=== PATIENT | female | born 2000 | race Caucasian/White ===

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

== ENCOUNTER 2022-05-19 10:06 | Emergency (ER) | payer BC ==
--- OUTSIDE RECORDS SUMMARY | 2022-05-19 10:15 | XMS REPORT | Continuity of Care Document ---
:2000 Author Organization [facility] t Address [address] [place] [address] Care Team Providers Name Role Phone Shield Attending Clinician Unavailable EUFEMIA MUÑIZ Attending Clinician Unavailable KAMINI Attending Clinician Unavailable Hope_David Attending Clinician Unavailable A_Byrd Attending Clinician Unavailable TAO DAILY Attending Clinician Unavailable JUAN SWIFT Attending Clinician Unavailable KIARRA OH Attending Clinician Unavailable AGATA MONTESINOS Attending Clinician Unavailable IRAIDA JUNIOR Attending Clinician Unavailable Mary Kay Admitting Clinician Unavailable KELLY_JAMIE Admitting Clinician Unavailable Hope_David Admitting Clinician Unavailable A_Byrd Admitting Clinician Unavailable Payers Payer Name Policy Type Policy Number Effective Date Expiration Date S [place] [id number] 2019 00:00:00 [place] Problems Condition Condition Condition Status Onset Resolution Last Treating Co mments Source Name Details Category Date Date Treatment Clinician Date 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-16 da major Major 00:00: [facility] depression Depression 00 al [facility] Premenstru Premenstru Problem Active Bryant griffith tension al 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 bedtime. bedtime. Depo-Sap Basis Depo-Sap Basis No Depo-Prove [place] a a ra da [...] mg da tablet tablet tablet Medical Group amoxicillin amoxicillin No 1 Q12H amoxicilli [facility] 875 mg 875 mg n 875 mg da tablet Take tablet Take tablet Medical 1 tablet 1 tablet Take 1 Group every 12 every 12 tablet hours by hours by every 12 oral route oral route hours by for 10 for 10 oral route days. days. for 10 days. hydroxyzine hydroxyzine No hydroxyzin [facility] HCl 25 mg HCl 25 mg e HCl 25 d a tablet TAKE tablet TAKE mg tablet Medical 1 TABLET BY 1 TABLET BY TAKE 1 Group MOUTH ONCE MOUTH ONCE TABLET BY DAILY DAILY MOUTH ONCE NEEDED NEEDED DAILY NEEDED Immunizations Ordered Immunization Filled Immunization Date Status Commen ts Source Name Name influenza, influenza, 2019-03-24 Completed [facility] injectable, injectable, 00:00:00 Medical Grou p quadrivalent quadrivalent influenza, influenza, 2019-03-24 Completed [facility] injectable, injectable, 00:00:00 Medical Grou p quadrivalent quadrivalent Vital Signs Vital Name Observation Time Observation Value Comments Source Height 2022-03-16 00:00:00 63.2 [facility]in_i] [facility] BMI (Body Mass 2022-03-16 00:00:00 20.6 kg/m2 [facility] Index) Group BP Systolic 2022-03-16 00:00:00 98 mm[Hg] [facility] Body Weight 2022-03-16 00:00:00 1872 [oz_av] [facility] BP Diastolic 2022-03-16 00:00:00 63 mm[Hg] [facility] Height 2021-01-06 00:00:00 63 [in_i] [facility] BMI (Body Mass 2021-01-06 00:00:00 20.6 kg/m2 [facility] Index) [facility] Out[facility] BP Systolic 2021-01-06 00:00:00 91 mm[Hg] [facility] Body Weight 2021-01-06 00:00:00 116.4 [lb_av] [facility] BP Diastolic 2021-01-06 00:00:00 59 mm[Hg] [facility] BP Diastolic 2019-12-01 00:00:00 70 mm[Hg] [facility] BP Systolic 2019-12-01 00:00:00 105 mm[Hg] [facility] Body Weight 2019-12-01 00:00:00 104 [lb_av] [facility] BP Diastolic 2019-07-17 00:00:00 59 mm[Hg] [facility] Height 2019-07-17 00:00:00 63.5 [in_i] [facility] BMI (Body Mass 2019-07-17 00:00:00 16.6 kg/m2 [facility]) Group BP Systolic 2019-07-17 00:00:00 87 mm[Hg] [facility] Body Weight 2019-07-17 00:00:00 1520 [oz_av] [facility] BP Diastolic 2019-01-18 00:00:00 66 mm[Hg] [facility] Height 2019-01-18 00:00:00 63 [in_i] [facility] BMI (Body Mass 2019-01-18 00:00:00 17.7 kg/m2 [facility] Index) Group BP Systolic 2019-01-18 00:00:00 95 mm[Hg] [facility] Body Weight 2019-01-18 00:00:00 1601 [oz_av] [facility] BP Diastolic 2018-10-06 00:00:00 84 mm[Hg] [facility] Height 2018-10-06 00:00:00 63 [in_i] [facility] BMI (Body Mass 2018-10-06 00:00:00 18.3 kg/m2 [facility] Medical Index) Group BP Systolic 2018-10-06 00:00:00 94 mm[Hg] [facility] Body Weight 2018-10-06 00:00:00 1649 [oz_av] [facility] BP Diastolic 2018-09-26 00:00:00 55 mm[Hg] [facility] Height 2018-09-26 00:00:00 63 [in_i] [facility] BMI (Body Mass 2018-09-26 00:00:00 18.1 kg/m2 [facility] Medical Index) Group BP Systolic 2018-09-26 00:00:00 96 mm[Hg] [facility] Body Weight 2018-09-26 00:00:00 102 [lb_av] [facility] BP Diastolic 2018-06-20 00:00:00 63 mm[Hg] [facility] Height 2018-06-20 00:00:00 62.6 [in_i] [facility] BMI (Body Mass 2018-06-20 00:00:00 18.4 kg/m2 [facility] Medical Index) Group BP Systolic 2018-06-20 00:00:00 94 mm[Hg] [facility] Body Weight 2018-06-20 00:00:00 1641 [oz_av] [facility] Procedures Procedure Date / Time Performing Clinician Source Performed US, pelvis 2019-12-01 00:00:00 Sheila Me dical Group US, transvaginal 2019-01-18 00:00:00 Sheila Hurtado edical Group US, pelvis 2018-09-26 00:00:00 Sheila Bullard dical Group Extraction of [place] 2018-05-24 00:00:00 Halyie valladares Medical Tooth Group ENT Surgery [facility] l Group Plan of Care Planned Activity Planned Date Details Comments Source Diagnostic Test 2022-03-16 rapid influenza [facility] Pending 00:00:00 virus A + B and SARS Group CoV + SARS CoV 2 Ag panel, IA, upper respiratory specimen [code = rapid influenza virus A + B and SARS CoV + SARS CoV 2 Ag panel, [place], upper respiratory specimen] Diagnostic Test 2022-03-16 rapid strep group A, [facility] Pending 00:00:00 throat [code = rapid Group strep group A, throat] Diagnostic Test 2022-03-16 TSH, serum or plasma [facility] Pending 00:00:00 [code = TSH, serum Group or plasma] Diagnostic Test 2022-03-16 CBC w/ auto diff [facility] Pending 00:00:00 [code = CBC w/ auto Group diff] Diagnostic Test 2022-03-16 CMP, serum or plasma [facility] Pending 00:00:00 [code = CMP, serum Group or plasma] Diagnostic Test 2021-01-06 CMP, serum or plasma [facility] Pending 00:00:00 [code = CMP, serum [facility] or plasma] Outreach Progra m Diagnostic Test 2021-01-06 lipid panel, serum [facility] Pending 00:00:00 [code = lipid panel, [facility] serum] Outreach Progra m Instructions [facility] Progra m Instructions [facility] Encounters Start End Encounter Admission Attending Care Care Encounter Source Date/Time Date/Time Type Type Clinicians Facility Department ID 2022 2022 Outpatient Shield MMG MMG [id number] [facility] 00:00:00 00:00:00 1107 [facility] 2022-03-16 2022-03-16 Outpatient MARY KAY [facility] [id number] [place] 11:03:00 11:03:00 EUFEMIA -[id number] blaine [facility] 2022-03-16 2022-03-16 Outpatient Shield MMG MMG [id number] [place] 00:00:00 00:00:00 1024 [facility] 2022-03-16 2022-03-16 Eufemia [place] - [id number] M [facility] 00:00:00 00:00:00 Discovery blaine Muñiz CHEMIST INORGANIC: [address] [facility] [place] [address], [facility] [place] [address] , Ph. 2022-03-11 2022-03-11 Outpatient Shield MMG MMG [id number] [place] 00:00:00 00:00:00 1019 da [facility] Group 2021-01-28 2021-01-28 Outpatient DESAI_KARLEY [facility]ON [facility] [id number] [place] 08:01:00 08:01:00 H 0907 da [facility] 2021-01-06 2021-01-06 Jamie DESAI_KARLEY [facility] [place] - [id number] [facility] 00:00:00 00:00:00 Jayantilal H [facility] 0816 beni Frost MD: [facility] Epi scop 1700 [facility] [address] Chel lipscomb , Ph. [phone] 2020-05-23 Outpatient G_Pappas MMG MMG 2019 [place] 01:04:00 01:04:00 1231 [facility] 2020-04-18 2020-04-18 Outpatient G_Pappas MMG MMG 2019 [place] 01:04:00 01:04:00 1126 [facility] 2020-04-10 2020-04-10 Outpatient G_Pappas MMG MMG - 2019 [place] 02:40:00 02:40:00 1118 [facility] 2020-03-14 2020-03-14 Outpatient G_Pappas MMG MMG 2019 [place] 01:05:00 01:05:00 1022 [facility] Group 2019-12-03 2019-12-03 Outpatient G_Pappas MMG MMG - 2019 [place] 09:30:00 09:30:00 0712 [facility] Group 2019-12-01 2019-12-01 Johann G_Pappas MMG [place] - [id number] [place] 00:00:00 00:00:00 Discovery David 0710 blaine CHAVEZ: [address] [place] [address] Group [facility] [address], [place] [address] , Ph. [phone] 2019-11-29 2019-11-29 Outpatient A_Byrd MMG MMG [id number] [place] 02:38:00 02:38:00 0708 [facility] 2019-07-23 2019-07-23 Outpatient A_Byrd YUN [facility] [id number] [place] 03:25:00 03:25:00 0301 da Medical Group 2019-07-17 2019-07-17 Eufemia [place] - [id number] [facility] 00:00:00 00:00:00 Discovery Mary Kay 0224 da CHEMIST INORGANIC: [address] [facility] [address] [address], [facility] [address] , Ph. 2019-07-05 2019-07-05 Outpatient MAYO DAILY, [facility] [id number] [place] 09:45:00 09:45:00 TAO -[id number] [facility] 2019-01-18 2019-01-18 Outpatient MAYO MUÑIZ, [facility] [id number] [place] 08:51:00 08:51:00 EUFEMIA -[id number] [facility] 2019-01-18 2019-01-18 [place] - [id number] [facility] 00:00:00 00:00:00 Discovery Mary Kay 0828 da CHEMIST INORGANIC: [address] [place] [address], [place] [address], [facility] [place] [address] , Ph. 2018-10-06 2018-10-06 Eufemia [facility] [place] - [id number] [facility] 00:00:00 00:00:00 Discovery Mary Kay 0516 da CHEMIST INORGANIC: [address] [place], [place] [address]rda - [address], [facility] [place] [address] , Ph. 2018-09-26 2018-09-26 Bernice Barger [facility] [place] - [id number] [place] 00:00:00 00:00:00 Discovery Michael 0506 da WHNP: [address] [place] [address], [place] [address], [place] [address] , Ph. [phone] 2018-08-12 2018-08-12 Outpatient JON SWIFT, [facility] [id number] [place] 08:51:00 08:51:00 JUAN -[id number] [facility] 2018-06-20 2018-06-20 [place] - [id number] [facility] 00:00:00 00:00:00 Discovery Mary Kay 0128 da CHEMIST INORGANIC: [address] [facility] [place], [place] [address], [facility] [place] [address] , Ph. 2016-06-11 2016-06-11 Outpatient JON OH [facility] [id number] [place] 14:56:00 14:56:00 KIARRA -[id number] [facility] 2016-06-09 2016-06-09 Outpatient MAYO OH [facility] [id number] [place] 14:57:00 14:57:00 KIARRA -[id number] [facility] 2014-07-10 2014-07-10 Emergency ER BA, AGATA [facility] [id number] [place] 17:27:00 20:41:00 -[id number] [facility] 2009-07-30 2009-07-30 Outpatient MAYO JUNIOR [facility] [id number] [place] 06:31:00 06:31:00 IRAIDA -[id number] [facility] 2004-12-26 2004-12-26 Outpatient MAYO [place] [facility] [id number] [place] 08:46:00 08:46:00 KIARRA -[id number] [facility] Results Test Description Test Time Test Comments Results Result Comments Source quest collection 2019-07-05 09:13:00 Test Item Value Reference Range Interpretation Comme nts quest collection (test code = quest collection) [facility] W Auto Differential panel - [id number] 07:02:00 Test Item Value Reference Range Interpretation Comments white blood count (test code = 6.5 K/uL 4.0-11.5 white blood count) red blood count (test code = red 4.28 M/uL 3.80-5.20 blood count) hemoglobin (test code = 13.9 g/dL 12-16 hemoglobin) hematocrit (test code = 40.2 % 34.0-50.0 hematocrit) Erythrocyte mean corpuscular 93.9 fL 78-102 volume [Entitic volume] (test code = 39685-7) mean corpuscular hemoglobin (test 32.5 pg 26.2-33.4 [...] 44.4-80.1 leukocytes in Blood (test code = 36187-9) Ig% (test code = Ig%) 0.3 % 0.0-11.0 lymphocyte% (test code = 26.8 % 10.0-50.0 lymphocyte%) mono % (test code = mono %) 7.7 % 3.0-6.0 H eos % (test code = eos %) 1.4 % 0.0-3.0 Basophils/100 leukocytes in 0.3 % 0.0-1.0 Unspecified specimen (test code = 92454-9) absolute neutrophil count (test 4.10 K/uL 1.5-9.5 code = absolute neutrophil count) Ig# (test code = Ig#) 0.0 K/uL 0.0-0.03 Lymphocytes [#/volume] in 1.7 K/uL 1.1-6.0 Unspecified specimen by Automated count (test code = 53784-6) mono # (test code = mono #) 0.50 K/uL 0.24-0.86 eos # (test code = eos #) 0.09 K/uL 0.04-0.36 basophil # (test code = basophil 0.02 K/uL 0.01-0.08 #) NRBC% (test code = NRBC%) 0 /100 WBC 0-0.2 NRBC# (test code = NRBC#) 0 K[facility] [id number] 07:02:00 NeutrophilsBandLymphocyteAtypical LymphMonocyteEosinophilPlatelet EstimatePlatelet MorphologyHypochromasiaDifferential comment-[facility] metabolic 2000 panel - Serum or [id number] 07:02:00 Test Item Value Reference Range Interpretation [...] = calcium 10.3 mg/dL 8.4-10.2 H level) [facility]
[2022-05-19 11:09] LABS: Urine Blood Trace-intact (Negative); Urine Glucose Negative (Negative); Urine Protein 1+ (Negative); Urine Specific Gravity >=1.030 (1.005-1.030)
[2022-05-19] MEDS ORDERED: Ringers Lactate 1,000 ML IV ONE ×2 (11:17→14:54)
[2022-05-19] MEDS ORDERED: ONDANSETRON 4 MG/2 ML VIAL ONE ×2 (11:17→12:51)
[2022-05-19 11:21] LABS: Absolute Lymphocytes (CBC) 1.7 K/uL (0.7-4.9); Hematocrit 41.4 % (36.0-45.0); Lymphocytes % 25.4 % (15.3-44.8); MCV 93.1 fL (80-100); MPV 7.1 fL (7.6-11.3); RBC Red Blood Cell Count 4.44 M/uL (3.86-4.86)
[2022-05-19 11:30] LABS: Urine Specific Gravity/Preg >1.030 (1.005-1.030)
[2022-05-19 11:44] LABS: SARS-COV-2 RT PCR NEGATIVE (NEGATIVE)
[2022-05-19 12:25] LABS: Albumin 4.7 g/dL (3.4-5.0); Bilirubin Total 1.3 mg/dL (0.2-1.0); Potassium 3.4 mmol/L (3.5-5.1); Protein, Total 7.9 g/dL (6.4-8.2)
--- NOTE | 2022-05-19 13:16 | RAD REPORT ---
EXAM DESCRIPTION: CTAbdomen Pelvis W Contrast - 05/19/2022 12:59 pm CLINICAL HISTORY: lower abdominal pain, vomiting COMPARISON: No comparisons TECHNIQUE: CT of the abdomen and pelvis was performed with IV contrast. All CT scans are performed using dose optimization technique as appropriate and may include automated exposure control or mA/KV adjustment according to patient size. FINDINGS: Lower chest: No acute abnormality. Liver: No acute abnormality or suspicious lesions. Biliary: No biliary ductal dilatation. Stomach: No significant focal abnormality. Duodenum: No significant focal abnormality. Pancreas: No significant abnormality. Spleen: No significant abnormality. Adrenal: No suspicious lesions. Kidney/ureter: No hydronephrosis. No renal calculi. Retroperitoneum: No retroperitoneal adenopathy. Vascular: No aneurysm. Bowel: Normal appendix.. Peritoneum: No ascites or free air. Bladder: Grossly unremarkable. Reproductive: Ovaries appear enlarged bilaterally with bilateral ovarian lesions. The largest in the right ovary measures 2.7 cm. Bones: No acute fracture. Other: n/a IMPRESSION: No acute intra-abdominal or pelvic finding. Ovaries are enlarged bilaterally which is pr esumably physiologic. If adnexal pathology is suspected, pelvic ultrasound could further evaluate. No rmal appendix.
[2022-05-19] MEDS ORDERED: ACETAMINOPHEN 325 MG TABLET ONE (13:52)
[2022-05-19] MEDS ORDERED: LORazepam 2 MG/ML VIAL ONE (14:11)
[2022-05-19] MEDS ORDERED: DIPHENHYDRAMINE 50 MG/ML VIAL ONE (14:53)
[2022-05-19] MEDS ORDERED: METOCLOPRAMIDE 10 MG/2mL INJ ONE (14:53)
--- NOTE | 2022-05-19 16:53 | ER ---
[facility] Name: Keri [facility] Age: 22 yrs Sex: Female : 2000 Arrival Date: 05/19/2022 Time: 10:09 Bed 11 Private MD: Diagnosis: Vomiting Presentation: 05/19 10:31 Chief complaint: Patient states: N/V with body aches since Wednesday. No fever. ll1 Coronavirus screen: Vaccine status: Patient reports receiving the 2nd dose of the covid vaccine. Client denies travel out of the [place] in the last 14 days. fatigue, nausea, vomiting. Client presents with at least one sign or symptom that may indicate coronavirus-19. Standard/surgical mask placed on the client. Ebola Screen: Patient denies travel to an Ebola-affected area in the 21 days before illness onset. Initial Sepsis Screen: Does the patient meet any 2 criteria? No. Patient's initial sepsis screen is negative. Does the patient have a suspected source of infection? Yes: Other: N/V. Risk Assessment: Do you want to hurt yourself or someone else? Patient reports no desire to harm self or others. Onset of symptoms was May 17, 2022. 10:31 Method Of Arrival: Ambulatory ll1 10:31 Acuity: MARIA FERNANDA 4 ll1 Triage Assessment: 10:33 General: Appears in no apparent distress. Behavior is calm, cooperative, appropriate ll1 for age. GI: Reports nausea, vomiting. Musculoskeletal: Reports pain in body aches. Historical: - Allergies: 10:31 No Known Allergies; ll1 - PMHx: 10:31 None; ll1 - PSHx: 10:31 None; ll1 - Immunization history:: Client reports receiving the 2nd dose of the Covid vaccine. - Social history:: Smoking status: Patient denies any tobacco usage or history of. Screenin:33 Abuse screen: Denies threats or abuse. Nutritional screening: No deficits noted. ll1 Tuberculosis screening: No symptoms or risk factors identified. 10:50 [facility] ED Fall Risk Assessment (Adult) History of falling in the last 3 months, ss including since admission No falls in past 3 months (0 pts) Confusion or Disorientation No (0 pts) Intoxicated or Sedated No (0 pts) Impaired Gait No (0 pts) Mobility Assist Device Used No (0 pt) Altered Elimination No (0 pt) Score/Fall Risk Level 0 - 2 = Low Risk. Assessment: 10:50 General: Appears ill, slender, Behavior is calm, cooperative. Pain: Complains of pain ss in generalized body aches. Neuro: Level of Consciousness is awake, alert, obeys commands, Oriented to person, place, time, situation, Photographic Aide are. Cardiovascular: Capillary refill < 3 seconds is brisk in bilateral fingers. Respiratory: Airway is patent Respiratory effort is even, unlabored, Respiratory pattern is regular, symmetrical. GI: Reports nausea, vomiting, since x 2-3 days. : Denies burning with urination, urinary frequency. Derm: Skin is pink, warm \T\ dry. normal. Musculoskeletal: Circulation, motion, and sensation intact. Range of motion: intact in all extremities, Swelling absent. 11:59 Reassessment: Patient appears in no apparent distress at this time. Patient states ss feeling better. Patient states symptoms have improved. 12:40 Reassessment: Patient appears in no apparent distress at this time. No changes from em6 previously documented assessment. Patient and/or family updated on plan of care and expected duration. Pain level reassessed. Patient is alert, oriented x 3, equal unlabored respirations, skin warm/dry/pink. patient states feeling nauseous. provider notified. new order given. 12:40 GI: Abdomen is flat, non-distended, Bowel sounds present X 4 quads. Abd is soft and non em6 tender X 4 quads. 13:45 Reassessment: Patient and/or family updated on plan of care and expected duration. Pain em6 level reassessed. Patient is alert, oriented x 3, equal unlabored respirations, skin warm/dry/pink. patient states having a MCNEAL in the frontal area. pain at 5. provider notified new orders given. 14:50 Reassessment: Patient and/or family updated on plan of care and expected duration. Pain em6 level reassessed. Patient is alert, oriented x 3, equal unlabored respirations, skin warm/dry/pink. patient states feeling nauseous. provider notified new order given. 16:00 Reassessment: Patient appears in no apparent distress at this time. Patient and/or em6 family updated on plan of care and expected duration. Pain level reassessed. Patient is alert, oriented x 3, equal unlabored respirations, skin warm/dry/pink. Patient states symptoms have improved. Vital Signs: 10:31 BP 110 / 77; Pulse 77; Resp 17; Temp 98.5(O); Pulse Ox 100% ; ll1 13:09 BP 102 / 69; Pulse 98; Resp 18; Temp 98.7; Pulse Ox 100% ; em6 14:23 BP 98 / 69; Pulse 83; Resp 16; Pulse Ox 100% on R/A; em6 15:38 BP 94 / 64; Pulse 86; Resp 16; Pulse Ox 100% on R/A; em6 16:48 BP 99 / 70; Pulse 85; Resp 16; Pulse Ox 100% on R/A; em6 ED Course: 10:09 Patient arrived in ED. rg4 10:22 Bryant Antonio PA is PHCP. jmm 10:22 Zackery Matson MD is Attending Physician. jmm 10:31 Robert Stacy RN is Primary Nurse. ll1 10:31 Arm band placed on Patient placed in an exam room, on a stretcher. ll1 10:33 Triage completed. ll1 10:33 Patient has correct armband on for positive identification. Bed in low position. Call 1 light in reach. Side rails up X 1. Cardiac monitoring not applicable on this patient. 10:39 Strep Sent. ll1 10:39 COVID-19/FLU A+B Sent. ll1 11:11 Inserted saline lock: 22 gauge in right antecubital area, using aseptic technique. ss Patient maintains SpO2 saturation greater than 95% on room air. 13:01 CT Abd/Pelvis - IV Contrast Only In Process Unspecified. EDMS 16:59 No provider procedures requiring assistance completed. IV discontinued, intact, em6 bleeding controlled, No redness/swelling at site. Pressure dressing applied. Administered Medications: 11:21 Drug: Lactated Ringers Solution 1000 ml Route: IV; Rate: 1000 bolus; Site: right ss antecubital; 12:50 Follow up: Response: No adverse reaction; IV Status: Completed infusion; IV Intake: em6 1000ml 11:21 Drug: Zofran (Ondansetron) 4 mg Route: IVP; Site: right antecubital; ss 12:20 Follow up: Response: No adverse reaction em6 12:53 Drug: Zofran (Ondansetron) 4 mg Route: IVP; Site: right antecubital; em6 13:20 Follow up: Response: No adverse reaction em6 13:52 Drug: Acetaminophen 650 mg Route: PO; em6 14:21 Follow up: Response: No adverse reaction em6 14:10 Drug: Ativan (LORazepam) 0.5 mg Route: IVP; Site: right antecubital; em6 15:00 Follow up: Response: No adverse reaction em6 15:00 Drug: Reglan (metoCLOPramide) 20 mg Route: IVP; Site: right antecubital; em6 15:40 Follow up: Response: No adverse reaction em6 15:00 Drug: diphenhydrAMINE 12.5 mg Route: IVP; Site: right antecubital; em6 15:40 Follow up: Response: No adverse reaction em6 15:01 Drug: Lactated Ringers Solution 1000 ml Route: IV; Rate: 1000 bolus; Site: right em6 antecubital; 16:09 Follow up: Response: No adverse reaction; IV Status: Completed infusion; IV Intake: em6 1000ml Medication: 10:33 VIS not applicable for this client. ll1 Intake: 12:50 IV: 1000ml; Total: 1000ml. em6 16:09 IV: 1000ml; Total: 2000ml. em6 Outcome: 16:52 Discharge ordered by MD. [facility] 16:59 Discharged to home ambulatory, with family. em6 16:59 Condition: stable 16:59 Discharge instructions given to patient, family, Instructed on discharge instructions, follow up and referral plans. medication usage, Demonstrated understanding of instructions, follow-up care, medications, Prescriptions given X 3. 17:00 Patient left the ED. em6 Signatures: Dispatcher [employer] EDMS Bryant Antonio PA PA jmm Smirch, Shelby, RN RN ss Garcia, Rubi rg4 Robert Stacy RN RN ll1 Stefani Govea RN RN em6 Corrections: (The following items were deleted from the chart) 13:44 12:55 Reassessment: Patient appears in no apparent distress at this time. No changes em6 from previously documented assessment. Patient and/or family updated on plan of care and expected duration. Pain level reassessed. Patient is alert, oriented x 3, equal unlabored respirations, skin warm/dry/pink. em6 14:20 13:09 Reassessment: Patient appears in no apparent distress at this time. No changes em6 from previously documented assessment. Patient and/or family updated on plan of care and expected duration. Pain level reassessed. Patient is alert, oriented x 3, equal unlabored respirations, skin warm/dry/pink. em6 14:21 12:40 Reassessment: Patient appears in no apparent distress at this time. No changes em6 from previously documented assessment. Patient and/or family updated on plan of care and expected duration. Pain level reassessed. Patient is alert, oriented x 3, equal unlabored respirations, skin warm/dry/pink. patient states feeling nauseous. provider notified. new order given em6
--- NOTE | 2022-05-19 16:53 | EDPHYS ---
Physician Documentation [facility] Name: Keri Champion Age: 22 yrs Sex: Female : 2000 Arrival Date: 05/19/2022 Time: 10:09 Bed 11 Private MD: ED Physician Zackery Matson HPI: 05/19 10:24 This 22 yrs old Female presents to ER via Ambulatory with complaints of Vomiting, Body jmm Aches. 10:24 The patient presents to the emergency department with nausea, vomiting. Onset: The jmm symptoms/episode began/occurred gradually. Possible causes: unknown. This is a 22-year-old female with history of anxiety the presents emerged part with nausea and vomiting, patient typically attributes this to anxiety. Patient also states she ran out of her Klonopin approximately a week ago and has had increased episodes of vomiting. Denies any fever. Denies diarrhea. Patient does have some diffuse abdominal pain. Historical: - Allergies: 10:31 No Known Allergies; ll1 - PMHx: 10:31 None; ll1 - PSHx: 10:31 None; ll1 - Immunization history:: Client reports receiving the 2nd dose of the Covid vaccine. - Social history:: Smoking status: Patient denies any tobacco usage or history of. ROS: 10:24 Constitutional: Positive for body aches. jmm 10:24 Abdomen/GI: Positive for abdominal pain, nausea and vomiting. 10:24 Neuro: Positive for headache. 10:24 All other systems are negative. Exam: 10:24 Constitutional: This is a well developed, well nourished patient who is awake, alert, jmm and in no acute distress. Head/Face: atraumatic. Eyes: EOMI, no conjunctival erythema appreciated ENT: Moist Mucus Membranes Neck: Trachea midline, Supple Chest/axilla: Normal chest wall appearance and motion. Cardiovascular: Regular rate and rhythm. No edema appreciated Respiratory: Normal respirations, no respiratory distress appreciated Abdomen/GI: Non distended Back: Normal ROM Skin: General appearance color normal MS/ Extremity: Moves all extremities, no obvious deformities appreciated, no edema noted to the lower extremities Neuro: Awake and alert Psych: Behavior is normal, Mood is normal, Patient is cooperative and pleasant Vital Signs: 10:31 BP 110 / 77; Pulse 77; Resp 17; Temp 98.5(O); Pulse Ox 100% ; ll1 13:09 BP 102 / 69; Pulse 98; Resp 18; Temp 98.7; Pulse Ox 100% ; em6 14:23 BP 98 / 69; Pulse 83; Resp 16; Pulse Ox 100% on R/A; em6 15:38 BP 94 / 64; Pulse 86; Resp 16; Pulse Ox 100% on R/A; em6 16:48 BP 99 / 70; Pulse 85; Resp 16; Pulse Ox 100% on R/A; em6 MDM: 10:32 Patient medically screened. angelito 16:51 Data reviewed: vital signs, nurses notes. Counseling: I had a detailed discussion with tristen the patient and/or guardian regarding: the historical points, exam findings, and any diagnostic results supporting the discharge/admit diagnosis, lab results, the need for outpatient follow up, to return to the emergency department if symptoms worsen or persist or if there are any questions or concerns that arise at home. 05/19 10:24 Order name: COVID-19/FLU A+B; Complete Time: 11:50 [facility] 05/19 10:24 Order name: Strep; Complete Time: 11:18 [facility] 05/19 10:38 Order name: CBC with Diff; Complete Time: 11:23 [facility] 05/19 10:38 Order name: CMP; Complete Time: 12:35 [facility] 05/19 10:38 Order name: Lipase; Complete Time: 12:35 [facility] 05/19 10:38 Order name: [place] Screen Profile; Complete Time: 11:32 [facility] 05/19 11:10 Order name: Urine Dipstick-Ancillary; Complete Time: 11:18 [facility] 05/19 11:14 Order name: Urine --Ancillary (enter results); Complete Time: 11:30 [email or web address] 05/19 11:18 Order name: Throat Culture [facility] 05/19 12:43 Order name: CT Abd/Pelvis - IV Contrast Only; Complete Time: 13:19 [facility] 05/19 10:24 Order name: Urine Dipstick-Ancillary (obtain specimen); Complete Time: 11:11 [facility] 05/19 10:38 Order name: Saline Lock; Complete Time: 11:11 [facility] Administered Medications: 11:21 Drug: Lactated Ringers Solution 1000 ml Route: IV; Rate: 1000 bolus; Site: right ss antecubital; 12:50 Follow up: Response: No adverse reaction; IV Status: Completed infusion; IV Intake: em6 1000ml 11:21 Drug: Zofran (Ondansetron) 4 mg Route: IVP; Site: right antecubital; ss 12:20 Follow up: Response: No adverse reaction em6 12:53 Drug: Zofran (Ondansetron) 4 mg Route: IVP; Site: right antecubital; em6 13:20 Follow up: Response: No adverse reaction em6 13:52 Drug: Acetaminophen 650 mg Route: PO; em6 14:21 Follow up: Response: No adverse reaction em6 14:10 Drug: Ativan (LORazepam) 0.5 mg Route: IVP; Site: right antecubital; em6 15:00 Follow up: Response: No adverse reaction em6 15:00 Drug: Reglan (metoCLOPramide) 20 mg Route: IVP; Site: right antecubital; em6 15:40 Follow up: Response: No adverse reaction em6 15:00 Drug: diphenhydrAMINE 12.5 mg Route: IVP; Site: right antecubital; em6 15:40 Follow up: Response: No adverse reaction em6 15:01 Drug: Lactated Ringers Solution 1000 ml Route: IV; Rate: 1000 bolus; Site: right em6 antecubital; 16:09 Follow up: Response: No adverse reaction; IV Status: Completed infusion; IV Intake: em6 1000ml Disposition Summary: 05/19/22 16:52 Discharge Ordered Location: Home [facility] Condition: Stable [facility] Diagnosis - Vomiting [facility] Followup: [facility] - With: Private Physician - When: 2 - 3 days - Reason: Recheck today's complaints, Continuance of care, Re-evaluation by your physician Discharge Instructions: - Discharge Summary Sheet [facility] - Vomiting, Adult [facility] Forms: - Medication Reconciliation Form [facility] - Thank You Letter [facility] - Antibiotic Education [facility] - Prescription Opioid Use [facility] Prescriptions: - promethazine 25 mg Rectal suppository - insert 1 suppository by RECTAL route every 6 hours As needed; 20 suppository; [facility] Refills: 0, Product Selection Permitted - Pepcid 20 mg Oral Tablet - take 1 tablet by ORAL route every 12 hours for 10 days; 20 tablet; Refills: 0, [facility] Product Selection Permitted - Klonopin 0.5 mg Oral Tablet - take 1 tablet by ORAL route every 12 hours As needed; 20 tablet; Refills: 0, [facility] Product Selection Permitted Signatures: Dispatcher [employer] Zackery Martinez, Bryant Villalta MD, cha, PA PA jmm Smirch, Shelby, RN RN ss Robert Stacy RN RN ll1 Stefani Govea RN RN em6
[2022-05-19 17:09] VITALS: O2SAT 100
[2022-05-19 17:19] VITALS: TEMP 98.7
[2022-05-19 17:27] VITALS: BP 99/70
== END 2022-05-19 17:00 | disposition home or self-care (01) ==
LOC: ER 10:06
DX: R11.2 Nausea with vomiting, unspecified (principal); Z20.822 Contact with and (suspected) exposure to COVID-19
CPT/HCPCS: 87070; 85025; 36415; 86308; 81025; 87081; 81003; 83690; 80053; 0240U; 74177; Q9967; J2765; J1200; J7120 ×2; J2405 ×2; 96361; 96374; 96375; 99284